=== PATIENT | female | born 1960 | race Caucasian/White ===

== ENCOUNTER → 2018-09-17 | Outpatient (CLI) | payer MEDICARE ==
[2016-03-05 14:40] VITALS: BP 133/77
[~2018-09-17] MED LIST: NAPR-514 PO; ONDA4TAB7 PO
--- NOTE | 2018-09-17 16:06 | KCIC ---
EXAM: Left foot, 3 views. HISTORY: Pain. COMPARISON: None. FINDINGS: 3 views left foot are obtained. There is no fracture, dislocation or subluxation. IMPRESSION: No acute osseous finding. Electronically signed by: Marylou Francis MD (09/17/2018 4:03 PM) [facility]
--- NOTE | 2018-09-17 16:38 | KCIC ---
EXAM: Bilateral hands, 3 views. HISTORY: Pain. COMPARISON: None. FINDINGS: 3 views of both hands are obtained. There is no fracture, dislocation or subluxation. There is mild left first carpometacarpal joint subchondral sclerosis, subchondral and cyst formation and marginal spurring. There is a punctate foreign body within the superficial soft tissues or along the skin surface of the left hand at the level of the first metacarpal. IMPRESSION: 1. Mild left first carpometacarpal osteoarthritis. 2. No acute osseous finding. Electronically signed by: Marylou Francis MD (09/17/2018 4:35 PM) [facility]
== END | disposition home or self-care (01) ==
LOC: KCIC 15:22
PROVIDERS: ATTEND Family Medicine
DX: M18.12 Unilateral primary osteoarthritis of first carpometacarpal joint, left hand (principal); M79.672 Pain in left foot; M79.641 Pain in right hand
CPT/HCPCS: 73130; 73630

== ENCOUNTER → 2018-09-23 | Outpatient (CLI) | payer MEDICARE ==
[2016-03-05 14:40] VITALS: BP 133/77
--- NOTE | 2018-09-23 15:13 | KCIC ---
Indication: Right rib pain TECHNIQUE: PA chest and 3 views of the right ribs COMPARISON: None FINDINGS: Heart is normal in size. Lungs are clear. No pneumothorax or effusion. Chronic deformity is seen in the right posterior sixth rib likely from prior surgery. No acute fracture. IMPRESSION: No acute findings. Electronically signed by: Fadi Marion DO (09/23/2018 3:10 PM) [facility]
--- NOTE | 2018-09-23 17:34 | KCIC ---
Bilateral digital screening mammograms with 3-D tomosynthesis: Reason for examination: Routine screening. Comparison is made to previous studies dated 11/27/2016 and 08/02/2015. Bilateral mammograms in CC and oblique projections were obtained with 2-D imaging and 3-D tomosynthesis imaging on a Siemens Inspiration unit and reviewed on the workstation. Interpretation was made with the benefit of CAD. The skin and nipples show no abnormalities. No abnormal axillary lymph nodes are seen. The breast parenchyma shows scattered fatty and fibroglandular density. (Breast density: Category B.) There continues to be a nodular density at the 2:00 B position of the left breast which is unchanged. There are no new dominant masses, suspicious calcifications or architectural distortion. Impression: No evidence of malignancy. Recommend routine screening. BI-RAD Category 2: Benign. "Our facility is accredited by the [employer] Mammography Program." This patient's information has been entered into a reminder system for the patient to be notified with the results of her examination and a target date for the next mammogram. Electronically signed by: Britt Koch MD (09/23/2018 5:31 PM) [id number]
== END | disposition home or self-care (01) ==
LOC: KCIC 11:25
PROVIDERS: ATTEND Nurse Practitioner Family
DX: Z12.31 Encounter for screening mammogram for malignant neoplasm of breast (principal); R07.81 Pleurodynia
CPT/HCPCS: 71101; 77063; 77067

== ENCOUNTER 2018-09-28 07:14 | Emergency (ER) | payer MEDICARE ==
[~2018-09-28] VITALS: Ht 162.6 cm; Wt 65.8 kg
[~2018-09-28 07:14] MED LIST changes: -ONDA4TAB7 PO
--- NOTE | 2018-09-28 07:42 | PHYS DOC ---
Past Medical History Past Medical History: Depression, Lung Disease Additional Past Medical Histor: DVT, PTSD, INFLAMATORY PSEUDO LUNGS DS Past Surgical History: Cholecystectomy, Hysterectomy Past Surgical History hx of partial pulmonary resection Alcohol Use: None Drug Use: None Adult General Chief Complaint Chief Complaint: HEADACHE HPI HPI 58-year-old female presenting the emergency department today with a headache that started on Saturday. She describes that it did not come on with maximal intensity within the first hour. It was not sudden in onset. It is a sharp shooting pain. It is nonradiating moderate to severe and without alleviating factors. She reports not having a history of headaches. No alleviating or exacerbating factors. She denies a family history of subarachnoid hemorrhage or sudden, or . ROS: She denies neck stiffness nuchal rigidity fevers. She denies recent rashes. She denies vision changes slurred speech or numbness weakness or tingling. All other review of systems is negative unless otherwise noted in history of present illness. ED course: 58-year-old female presenting with a headache. On arrival heart rate is within normal limits. Temperature is within normal limits. Exam below. Head CT along with blood work ordered. The patient is currently anticoagulated with a novel oral anticoagulant. I do not feel comfortable performing a lumbar puncture given the risk of bleeding in the neuro axis given the patient being on a novel oral anticoagulant. IV initiated and IV fluids along with steroids and Reglan and Benadryl ordered.07:58AM On reexamination, the patient is feeling much better. Head CT is unremarkable. Otherwise blood work is unremarkable. We will discharge patient home and refer her to neurology over the next day or 2 for evaluation for an atypical headache and further evaluation treatment and care. If her headache returns she can return to the emergency department.The patient has been examined and was not found to have an emergency medical condition. The patient was then discharged home in stable condition to follow up with their primary care physician and neurology over the next 1-2 days. They were to return if their symptoms worsened or if they were concerned for any reason. They were also instructed to return to the emergency department if they were unable to get the recommended and appropriate follow-up. [id number] discharge instructions and return precautions were given. Patient's questions were answered to their satisfaction. Patient is comfortable with plan. Review of Systems Review of Systems SEE ABOVE. Current Medications Current Medications Current Medications Medications (Trade) Dose Ordered Sig/Diana Start Time Stop Time Status Last Admin Dose Admin Dexamethasone Sodium Phosphate (Decadron) 10 mg 1X ONCE 09/28/18 07:45 09/28/18 07:50 DC 09/28/18 08:03 10 MG Diphenhydramine HCl (Benadryl) 25 mg 1X ONCE 09/28/18 07:45 09/28/18 07:50 DC 09/28/18 08:03 25 MG Metoclopramide HCl (Reglan Vial) 10 mg 1X ONCE 09/28/18 07:45 09/28/18 07:50 DC 09/28/18 08:02 10 MG Sodium Chloride 1,000 ml @ 1,000 mls/hr 1X ONCE 09/28/18 07:45 09/28/18 08:44 DC 09/28/18 08:02 1,000 MLS/HR Allergies Allergies Allergies Coded Allergies Type Severity Reaction Last Updated Verified codeine Allergy Unknown Nausea and Vomiting 03/05/16 Yes progesterone Allergy Unknown 03/05/16 Yes Physical Exam Physical Exam SEE ABOVE Constitutional: Well developed, well nourished, no acute distress, non-toxic appearance. [] HENT: Normocephalic, atraumatic, bilateral external ears normal, oropharynx moist, no oral exudates, nose normal. [] Eyes: PERRLA, EOMI, conjunctiva normal, no discharge. [] Neck: Normal range of motion, no tenderness, supple, no stridor. [] No neck stiffness. No nuchal rigidity. Negative Brudzinski's sign. Negative Kernig sign. Cardiovascular:Heart rate regular rhythm, no murmur [] Lungs & Thorax: Bilateral breath sounds clear to auscultation [] Abdomen: Bowel sounds normal, soft, no tenderness, no masses, no pulsatile masses. [] Skin: Warm, dry, no erythema, no rash. [] No petechiae present. Back: No tenderness, no CVA tenderness. [] Extremities: No tenderness, no cyanosis, no clubbing, ROM intact, no edema. [] Neurologic: Mental status: Awake oriented and alert x3 Cranial nerves: Extraocular movements intact, eyebrows lee bilaterally, smile symmetric, uvula elevation nl, shoulder shrug intact bilaterally, tongue protrusion normal DTRs: 2+ Sensation: equal and normal in all extremities Strength: 5/5 in upper and lower extremities bilaterally Psychologic: Affect normal, judgement normal, mood normal. [] Current Patient Data Vital Signs Vital Signs Date Time Temp Pulse Resp B/P (MAP) Pulse Ox O2 Delivery O2 Flow Rate FiO2 09/28/18 07:42 98.6 64 18 92/55 (67) 95 Room Air 98.6 Lab Values Laboratory Tests Test 09/28/18 07:30 White Blood Count 6.7 x10^3/uL (4.0-11.0) Red Blood Count 4.34 x10^6/uL (3.50-5.40) Hemoglobin 13.1 g/dL (12.0-15.5) Hematocrit 39.8 % (36.0-47.0) Mean Corpuscular Volume 92 fL (79-100) Mean Corpuscular Hemoglobin 30 pg (25-35) Mean Corpuscular Hemoglobin Concent 33 g/dL (31-37) Red Cell Distribution Width 14.2 % (11.5-14.5) Platelet Count 218 x10^3/uL (140-400) Neutrophils (%) (Auto) 64 % (31-73) Lymphocytes (%) (Auto) 26 % (24-48) Monocytes (%) (Auto) 8 % (0-9) Eosinophils (%) (Auto) 2 % (0-3) Basophils (%) (Auto) 1 % (0-3) Neutrophils # (Auto) 4.3 x10^3uL (1.8-7.7) Lymphocytes # (Auto) 1.7 x10^3/uL (1.0-4.8) Monocytes # (Auto) 0.5 x10^3/uL (0.0-1.1) Eosinophils # (Auto) 0.1 x10^3/uL (0.0-0.7) Basophils # (Auto) 0.0 x10^3/uL (0.0-0.2) Prothrombin Time 12.9 SEC (11.7-14.0) Prothrombin Time INR 1.0 (0.8-1.1) PTT 30 SEC (24-38) Sodium Level 134 mmol/L (136-145) L Potassium Level 4.1 mmol/L (3.5-5.1) Chloride Level 99 mmol/L (98-107) Carbon Dioxide Level 25 mmol/L (21-32) Anion Gap 10 (6-14) Blood Urea Nitrogen 8 mg/dL (7-20) Creatinine 1.0 mg/dL (0.6-1.0) Estimated GFR (Cockcroft-Gault) 57.1 BUN/Creatinine Ratio 8 (6-20) Glucose Level 106 mg/dL (70-99) H Calcium Level 8.8 mg/dL (8.5-10.1) Total Bilirubin 0.3 mg/dL (0.2-1.0) Aspartate Amino Transferase (AST) 16 U/L (15-37) Alanine Aminotransferase (ALT) 24 U/L (14-59) Alkaline Phosphatase 75 U/L (46-116) Total Protein 7.3 g/dL (6.4-8.2) Albumin 3.7 g/dL (3.4-5.0) Albumin/Globulin Ratio 1.0 (1.0-1.7) Laboratory Tests 09/28/18 07:30 Laboratory Tests 09/28/18 07:30 EKG EKG [] Radiology/Procedures Radiology/Procedures [] Course & Med Decision Making Course & Med Decision Making Pertinent Labs and Imaging studies reviewed. (See chart for details) [] Dragon Disclaimer Dragon Disclaimer This electronic medical record was generated, in whole or in part, using a voice recognition dictation system. Departure Departure Impression: Primary Impression: Headache Additional Impression: Other complicated headache syndrome Disposition: 01 HOME, SELF-CARE Condition: STABLE Referrals: SABINE PRATT MD (PCP) ROSY ROBERTS MD Patient Instructions: General Headache Without Cause, [id number] Additional Instructions: Thank you for allowing us to participate in your care today. Return to the emergency department you have any new or worsening symptoms, or if you are concerned for any reason. Return to emergency department if you have any new or concerning symptoms including but not limited to fever, chills, nausea, vomiting, intractable pain, any new rashes, chest pain, shortness of air , uncontrolled bleeding, difficulty breathing, and/or vision loss. Follow up with a neurologist in 1-2 days and your primary care physician within 1-2 days. Call your Primary Doctor tomorrow and inform them of your visit today. If you do not have a primary care provider we are happy to provide you with a list of our primary care providers contact information. This condition should be evaluated by your primary care physician and any recommended consulting services for continued management within 2 days after discharge. If at any time, you are having difficulty getting into your primary care doctor or a specialist, return to the emergency department. Problem Qualifiers DAISHA OSBORNE MD Sep 28, 2018 07:42
[2018-09-28] MEDS ORDERED: DEXAMETHASONE SOD PHOS 20 MG/5 ML VIAL. IV ONE (07:45)
[2018-09-28] MEDS ORDERED: METOCLOPRAMIDE HCL 10 MG/2 ML VIAL. IV ONE (07:45)
[2018-09-28] MEDS ORDERED: IV NORMAL SALINE 1000ML BAG 1,000 ML IV ONE (07:45)
[2018-09-28] MEDS ORDERED: diphenhydrAMINE 50 MG/ML VIAL IVP ONE (07:45)
[2018-09-28 08:23] LABS: BASO % 1 % (0-3); EOS # 0.1 x10^3/uL (0.0-0.7); EOS % 2 % (0-3); HEMATOCRIT 39.8 % (36.0-47.0); HEMOGLOBIN 13.1 g/dL (12.0-15.5); LYMPH # 1.7 x10^3/uL (1.0-4.8); LYMPH % 26 % (24-48); MEAN CORPUSCULAR HEMOGLOBIN 30 pg (25-35); MEAN CORPUSCULAR HGB CONC 33 g/dL (31-37); MEAN CORPUSCULAR VOLUME 92 fL (79-100); MONO # 0.5 x10^3/uL (0.0-1.1); MONO % 8 % (0-9); NEUT # 4.3 x10^3uL (1.8-7.7); NEUT % 64 % (31-73); PLATELET COUNT 218 x10^3/uL (140-400); RED BLOOD COUNT 4.34 x10^6/uL (3.50-5.40); RED CELL DISTRIBUTION WIDTH 14.2 % (11.5-14.5); WHITE BLOOD COUNT 6.7 x10^3/uL (4.0-11.0)
--- NOTE | 2018-09-28 08:25 | RAD ---
Examination: CT HEAD WO CONTRAST History: HEADACHE, NAUSEA, DIZZINESS SINCE SATURDAY.
PREVIOUS Comparison/Correlation: None Findings: Axial images of the head were obtained without contrast. Ventricles are normal size. No intracranial hemorrhage, midline shift, or mass effect. Globes and optic nerves are unremarkable. Impression: No acute process. PQRS Compliance Statement: One or more of the following individualized dose reduction techniques were utilized for this examination: 1. Automated exposure control 2. Adjustment of the mA and/or kV according to patient size 3. Use of iterative reconstruction technique Electronically signed by: Jamie Amaya MD (09/28/2018 8:22 AM) [facility]
[2018-09-28 08:33] LABS: PROTHROMBIN TIME PATIENT 12.9 SEC (11.7-14.0)
[2018-09-28 08:34] LABS: CALCIUM 8.8 mg/dL (8.5-10.1); GFR 57.1; POTASSIUM 4.1 mmol/L (3.5-5.1)
[2018-09-28 08:40] LABS: ALBUMIN 3.7 g/dL (3.4-5.0); TOTAL BILIRUBIN 0.3 mg/dL (0.2-1.0); TOTAL PROTEIN 7.3 g/dL (6.4-8.2)
[2018-09-28 09:40] VITALS: BP 94/57
[2018-09-28] MEDS ORDERED: ONDA4TAB7 PO (10:10)
== END 2018-09-28 10:20 | disposition home or self-care (01) ==
LOC: ER 07:14
DX: G44.89 Other headache syndrome (principal); F43.10 Post-traumatic stress disorder, unspecified; F32.9 Major depressive disorder, single episode, unspecified; Z88.5 Allergy status to narcotic agent; Z88.8 Allergy status to other drugs, medicaments and biological substances
CPT/HCPCS: 36415; 70450; 80053; 85025; 85610; 85730; 96374; 96375; 99284; J1100; J1200; J2765; J7030

== ENCOUNTER → 2020-04-19 | Outpatient (CLI) | payer MEDICARE ==
[~2020-04-19] MED LIST changes: +ONDA4TAB7 PO
--- NOTE | 2020-04-19 15:51 | KCIC ---
Limited pelvic ultrasound 04/19/2020 CLINICAL HISTORY: Palpable mass in the left pubic region. TECHNIQUE: A real-time ultrasound examination of the soft tissues of the anterior abdominal wall in the area of the patient's palpable abnormality was performed. Multiple images were obtained. FINDINGS: Comparison study is dated 11/08/2014. Within the subcutaneous soft tissues 3 mm deep to the skin surface, an oval-shaped well-defined echogenic mass is seen which measures 3.5 cm in greatest diameter. This is consistent with a lipoma. This corresponds to the patient's palpable abnormality. It has not significantly changed in size when compared to the previous study. 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 Electronically signed by: Montrell Lowe MD (04/19/2020 3:49 PM) [id number]
== END ==
LOC: KCIC US 14:53
PROVIDERS: ATTEND Nurse Practitioner Family
DX: R19.00 Intra-abdominal and pelvic swelling, mass and lump, unspecified site (principal); D17.5 Benign lipomatous neoplasm of intra-abdominal organs
CPT/HCPCS: 76857

== ENCOUNTER → 2020-04-22 | Outpatient (CLI) | payer MEDICARE ==
--- NOTE | 2020-04-22 15:05 | KCIC ---
Bilateral digital screening mammograms with 3-D tomosynthesis: Reason for examination: Routine screening. Comparison is made to previous studies dated back to 08/02/2015. Bilateral mammograms in CC and oblique projections were obtained with 2-D imaging and 3-D tomosynthesis imaging on a Siemens Inspiration unit and reviewed on the workstation. Interpretation was made with the benefit of CAD. The skin and nipples show no abnormalities. No abnormal axillary lymph nodes are seen. The breast parenchyma shows scattered fatty and fibroglandular density. (Breast density: Category B.) There continues to be a faint nodule at the 2:00 B position of the left breast which is stable. There continues to be some minimal nodularity centrally in the 12:00 position of the left breast which is stable. There are no new dominant masses, suspicious calcifications or architectural distortion. Impression: No evidence of malignancy. Recommend routine screening. BI-RAD Category 2: Benign. "Our facility is accredited by the [employer] Mammography Program." This patient's information has been entered into a reminder system for the patient to be notified with the results of her examination and a target date for the next mammogram. Electronically signed by: Britt Koch MD (04/22/2020 3:02 PM) [id number]
== END ==
LOC: KCIC MAMMO 12:44
PROVIDERS: ATTEND Nurse Practitioner Family
DX: Z12.31 Encounter for screening mammogram for malignant neoplasm of breast (principal); N64.89 Other specified disorders of breast
CPT/HCPCS: 77063; 77067

== ENCOUNTER 2021-01-08 18:13 | Emergency (ER) | payer MEDICARE ==
[~2021-01-08] VITALS: Ht 162.6 cm; Wt 61.4 kg
[2021-01-08] MEDS ORDERED: NAPROXEN 500 MG TABLET PO STA (18:26)
[2021-01-08] MEDS ORDERED: HYDROcodone/APAP 5/325MG 1 TAB TABLET PO ONE (18:30)
[2021-01-08] MEDS ORDERED: ONDANSETRON ODT 4 MG TAB.RAPDIS. PO ONE (18:30)
--- NOTE | 2021-01-08 18:41 | PHYS DOC ---
Past Medical History Past Medical History: DVT, Hypothyroid, Other Additional Past Medical Histor: PE Past Surgical History: Cholecystectomy, Hysterectomy, Other Additional Past Surgical Histo: LUNG BIOPSY, L HAND Smoking Status: Light Tobacco Smoker Additional Information: VAPES Alcohol Use: Rarely Drug Use: None General Adult EDM: Chief Complaint: KNEE INJURY HPI: HPI: Patient is a 60 year old female who presents the ED today complaining of 7 out of 10 sharp intermittent throbbing left knee pain that began last night after she fell. Patient states she tripped and fell down a concrete step. Denies any loss of consciousness. States the pain is worse on weightbearing. Denies anything specifically relieving the pain. Review of Systems: Review of Systems: Constitutional: Denies fever or chills. [] : Denies dysuria. [] Musculoskeletal: Reports left knee pain, denies any back pain Integument: Denies rash. [] Neurologic: Denies headache, focal weakness or sensory changes. [] Psychiatric: Denies depression or anxiety. [] Heart Score: C/O Chest Pain: N/A Risk Factors: Risk Factors: DM, Current or recent (<one month) smoker, HTN, HLP, family history of CAD, obesity. Risk Scores: Score 0 - 3: 2.5% MACE over next 6 weeks - Discharge Home Score 4 - 6: 20.3% MACE over next 6 weeks - Admit for Clinical Observation Score 7 - 10: 72.7% MACE over next 6 weeks - Early Invasive Strategies Current Medications: Current Medications Medications (Trade) Dose Ordered Sig/Diana Start Time Stop Time Status Last Admin Dose Admin Acetaminophen/ Hydrocodone Bitart (Lortab 5/325) 2 tab 1X ONCE 01/08/21 18:30 01/08/21 18:33 DC Naproxen (Naprosyn) 500 mg 1X STAT 01/08/21 18:26 01/08/21 18:33 DC Ondansetron HCl (Zofran Odt) 4 mg 1X ONCE 01/08/21 18:30 01/08/21 18:33 DC Allergies: Allergies: Allergies Coded Allergies Type Severity Reaction Last Updated Verified codeine Allergy Unknown Nausea and Vomiting 03/05/16 Yes progesterone Allergy Unknown 03/05/16 Yes Physical Exam: PE: Constitutional: Well developed, well nourished, no acute distress, non-toxic appearance. [] Skin: Warm, dry, no erythema, no rash. [] Back: No tenderness, no CVA tenderness. [] Extremities: Left knee with no obvious deformity, bruises noted on the anterior aspect of the left knee with Neosporin over the region. Full range of motion to the left knee including flexion extension of the knee. Negative Christina sign, negative Jorge sign. +2 left pedal pulse. Cap refill less than 2 seconds to left toes Neurologic: Alert and oriented X 3, normal motor function, normal sensory function, no focal deficits noted. [] Psychologic: Affect normal, judgement normal, mood normal. [] Current Patient Data: Vital Signs: Vital Signs Date Time Temp Pulse Resp B/P (MAP) Pulse Ox O2 Delivery O2 Flow Rate FiO2 01/08/21 18:16 98.0 78 16 130/70 (90) 99 Room Air 98.0 EKG: EKG: [] Radiology/Procedures: Radiology/Procedures: []PROCEDURE: KNEE LEFT 4V Left knee 3 views. HISTORY: Fall AP, oblique, lateral and sunrise views were taken of the left knee. There is no fracture or joint effusion or acute osseous abnormality. IMPRESSION: 1. Negative left knee. Electronically signed by: Rico Tellez MD (01/08/2021 6:58 PM) [facility] DICTATED and SIGNED BY: RICO TELLEZ MD DATE: 01/08/21 [id number] 0 Course & Med Decision Making: Course & Med Decision Making Pertinent Labs and Imaging studies reviewed. (See chart for details) This a 60-year-old female patient presenting to the ED today with left knee pain after falling down yesterday. Left knee x-rays interpreted by radiologist are negative for any acute findings. Patient has some bruising on the left knee, I put her on cephalexin prophylaxis. Immobilizer in place to the left knee by the cytotechnologist/histotechnologist, neurovascular exam is intact. Crutches provided. Ice elevation encouraged. Follow-up with orthopedic doctor in a week Jory Disclaimer: Jory Disclaimer: This electronic medical record was generated, in whole or in part, using a voice recognition dictation system. Departure Departure Impression: Primary Impression: Contusion of left knee Qualified Codes: S80.02XA - Contusion of left knee, initial encounter Additional Impression: Fall down steps Qualified Codes: W10.8XXA - Fall (on) (from) other stairs and steps, initial encounter Disposition: HOME / SELF CARE / HOMELESS Condition: STABLE Referrals: SABINE PRATT MD (PCP) DEEMTRIA HALE DO Follow-up in 1 week Patient Instructions: Contusion, [id number] Additional Instructions: You were seen for left knee pain, left knee x-rays are negative for any acute findings. Use the provided immobilizer as needed and tolerated, try to ice and elevate the extremity. Please complete the prescribed antibiotics. Follow-up with the provided orthopedic doctor in 1 week Scripts Cyclobenzaprine Hcl (CYCLOBENZAPRINE HCL) 10 Mg Tablet 1 TAB PO TID, #30 TAB Prov: AKBAR PAINTER APRN 01/08/21 Diclofenac Sodium (DICLOFENAC SODIUM) 50 Mg Tablet.dr 1 TAB PO BID, #20 TAB 1 Refill Prov: AKBAR PAINTER APRN 01/08/21 Cephalexin (CEPHALEXIN) 500 Mg Tablet 1 TAB PO TID, #30 TAB Prov: AKBAR PAINTER APRN 01/08/21 AKBAR PAINTER APRN Jan 08, 2021 18:41
[2021-01-08 18:45] VITALS: BP 108/67
--- NOTE | 2021-01-08 19:00 | RAD ---
Left knee 3 views. HISTORY: Fall AP, oblique, lateral and sunrise views were taken of the left knee. There is no fracture or joint eff usion or acute osseous abnormality. IMPRESSION: 1. Negative left knee. Electronically signed by: Rico Tellez MD (01/08/2021 6:58 PM) [facility]
[2021-01-08] MEDS ORDERED: DICL50TA4 PO (19:14)
[2021-01-08] MEDS ORDERED: CEPH500T PO (19:14)
[2021-01-08] MEDS ORDERED: HYDR-2761 PO (19:14)
[2021-01-08] MEDS ORDERED: CYCL10TA2 PO (19:15)
[2021-01-09] MEDS ORDERED: HYDR-2761 PO (10:33)
== END 2021-01-08 20:40 | disposition home or self-care (01) ==
LOC: ER 18:13
DX: S80.02XA Contusion of left knee, initial encounter (principal); E03.9 Hypothyroidism, unspecified; Z86.718 Personal history of other venous thrombosis and embolism; Z72.0 Tobacco use; Z88.5 Allergy status to narcotic agent; Z88.8 Allergy status to other drugs, medicaments and biological substances; W01.198A Fall on same level from slipping, tripping and stumbling with subsequent striking against other object, initial encounter; Y93.89 Activity, other specified; Y92.89 Other specified places as the place of occurrence of the external cause; Y99.8 Other external cause status
CPT/HCPCS: 29505; 73564; 99284

== ENCOUNTER → 2021-08-24 | Day surgery (SDC) | payer MEDICARE ==
[~2021-08-24] VITALS: Ht 162.6 cm; Wt 73.0 kg
[~2021-08-24] MED LIST changes: +APIX2.5T PO; +CEPH500T PO; +CHOL5000 PO; +CYAN500T7 PO; +CYCL10TA19 PO; +DICL50TA4 PO; +EZET10TA20 PO; +HYDR-2761 PO; +IV RINGERS,LACTATED 1000ML 1,000 ML IV SCH; +LEVO75TA5 PO; +LIDOCAINE 2% PF 5 ML VIAL. ONE; +PROPOFOL 10 MG/ML (20ML) VIAL. IV ONE; +SERT100T PO; +SIMV20TA18 PO; +SODIUM PHOSPHATES 19/7GM 133 ML ENEMA. ONE; +SODIUM PHOSPHATES 19/7GM 133 ML ENEMA. PR ONE
[2021-08-24 09:48] VITALS: BP 126/79
[2021-08-24 11:06] VITALS: BP 141/82
--- NOTE | 2021-08-28 16:08 | PATHOLOGY ---
[facility] Accession Number: [id number] . 01 Material submitted: . PART A: sigmoid colon - SIGMOID POLYP BX PART B: rectum - RECTAL POLYP BXS . 01 Clinical history: . SCREENING; COLONOSCOPY . 02 Diagnosis: A. Colon biopsy, sigmoid polyp: - Hyperplastic polyp. . B. Colorectal biopsies, rectal polyps: - Hyperplastic polyps. (JPM:pit; 08/28/2021) QTP 08/28/2021 0900 Local . 02 Comment: There are no adenomatous changes or evidence of malignancy. . 02 Electronically signed: . Darrius Mock MD, Pathologist NPI- [id number] . 01 Gross description: . A. The specimen is received in formalin, labeled "Hunter, Eloise, sigmoid polyp BX" and consists of a irby irregular tissue measuring 0.3 x 0.2 x 0.2 cm which is submitted in toto in A1. . B. The specimen is received in formalin, labeled "Hunter, Eloise, rectal polyp bxs" and consists of 2 irby irregular tissues aggregating 0.4 x 0.3 x 0.2 cm submitted in toto in B1. ([place]; 08/25/2021) DKA/DKA 08/25/2021 1315 Local . 02 Pathologist provided ICD-10: K63.5, K62.1 . 02 CPT . 433771, 213093 Specimen Comment: A courtesy copy of this report has been sent to [phone] Specimen Comment: Report sent to Performed at: [address], [place], [place] [id number] MD Aayush Moss MD Phone: [phone] Performed at: 02 [facility] [address] [place], [place] [id number] MD Darrius Mock MD Phone: [phone]
== END | disposition home or self-care (01) ==
LOC: SURG 09:12
PROVIDERS: ATTEND Internal Medicine Gastroenterology
DX: R19.4 Change in bowel habit (principal); R19.7 Diarrhea, unspecified; K64.0 First degree hemorrhoids; K63.5 Polyp of colon; K62.1 Rectal polyp; K63.89 Other specified diseases of intestine; E78.00 Pure hypercholesterolemia, unspecified; E03.9 Hypothyroidism, unspecified; M19.90 Unspecified osteoarthritis, unspecified site; F41.9 Anxiety disorder, unspecified; F32.9 Major depressive disorder, single episode, unspecified; Z87.891 Personal history of nicotine dependence; Z90.49 Acquired absence of other specified parts of digestive tract; Z90.710 Acquired absence of both cervix and uterus; Z98.890 Other specified postprocedural states; Z79.899 Other long term (current) drug therapy; Z88.5 Allergy status to narcotic agent; Z88.8 Allergy status to other drugs, medicaments and biological substances
CPT/HCPCS: 45380; J2704